=== PATIENT | male | born 1980 | race African-American/Black ===

== ENCOUNTER 2019-06-01 07:34 | Outpatient (CLI) | payer OTHER ==
--- NOTE | 2019-06-01 16:02 | Ultrasound Report ---
ULTRASOUND ABDOMEN, COMPLETE INDICATION: CHRONIC HEPATITIS B COMPARISON: None available LIMITATIONS: None FINDINGS: Pancreas: Detail is low but no obvious focal abnormalities are seen. Abdominal Aorta: No significant abnormalities. IVC: Normal Liver: Mild fatty infiltration is seen without obvious focal lesion. I do not have a measurement of t he right lobe. Gallbladder: Normal Bile ducts: Normal. Common Bile Duct measures 1 mm. Right Kidney: Normal Left Kidney: Normal Spleen: Normal Free fluid: None Additional Findings: None IMPRESSION: No acute abnormalities are seen.. Mild fatty liver. Signer Name: Joe Johnson MD Signed: 06/01/2019 3:57 PM Workstation Name: [id number]
== END 2019-06-01 07:35 | disposition home or self-care (01) ==
LOC: US 07:34
DX: K76.0 Fatty (change of) liver, not elsewhere classified (principal)
CPT/HCPCS: 76700